=== PATIENT | female | born 1950 | race Caucasian/White ===

== ENCOUNTER 2016-04-22 18:34 | Inpatient (IN) | payer MEDICARE, OTHER ==
[2016-04-22] MEDS ORDERED: ACETAMINOPHEN TAB 500 MG TAB PO STA (18:49)
--- NOTE | 2016-04-22 18:51 | ED ---
General Adult HPI <Stan Dotson - Last Filed: 04/22/16 21:20> - General Source: patient, RN notes reviewed Mode of arrival: ambulatory Limitations: no limitations <Rani Bradley - Last Filed: 04/22/16 21:33> - General Chief complaint: Nausea/Vomiting/Diarrhea Stated complaint: abnormal labs Time Seen by Provider: 04/22/16 18:44 - History of Present Illness Initial comments: 65-year-old female presents to the emergency department with a chief complaint of weakness. Patient has a past medical history of multiple myeloma. Patient states she has a history of low platelets as well. Patient is a stress is felt very weak and tired. Patient states she did have one episode of vomiting but denies any abdominal pain. Patient states she does not know she had a fever but she does present with a fever here. Patient states that she hasn't had a cough cold right now she denies any burning or stinging with urination. Patient states that she just feels generalized weakness. Patient does not know if it's because her platelets are low she has needed platelet transfusions whether something else going on. Patient states she was concerned due to the weakness so she thought that she should be evaluated.Patient denies any recent chills, shortness of breath, chest pain, back pain, abdominal pain, nausea vomiting, numbness or tingling, dysuria or hematuria, constipation or diarrhea, headaches or visual changes, or any other current symptoms. (Rani Bradley) - Related Data Home Medications Medication Instructions Recorded Confirmed Acyclovir 400 mg PO BID 04/22/16 04/22/16 Ferrous Sulfate [Feosol] 325 mg PO DAILY 04/22/16 04/22/16 Furosemide [Lasix] 40 mg PO DAILY 04/22/16 04/22/16 Gabapentin [Neurontin] 400 mg PO TID 04/22/16 04/22/16 Levothyroxine Sodium [Synthroid] 50 mcg PO DAILY 04/22/16 04/22/16 Morphine Sulfate ER [Ms Contin 15 mg PO Q12HR PRN 04/22/16 04/22/16 15Mg] Pravastatin Sodium [Pravachol] 80 mg PO DAILY 04/22/16 04/22/16 metFORMIN HCL 1,000 mg PO BID 04/22/16 04/22/16 Allergies Allergy/AdvReac Type Severity Reaction Status Date / Time hydrocodone [From [place]] AdvReac Severe Nausea & Verified 04/22/16 18:57 Vomiting Review of Systems ROS Other: All systems not noted in ROS Statement are negative. <Stan Dotson - Last Filed: 04/22/16 21:20> ROS Other: All systems not noted in ROS Statement are negative. <Rani Bradley - Last Filed: 04/22/16 21:33> ROS Statement: Those systems with pertinent positive or pertinent negative responses have been documented in the HPI. Past Medical History Past Medical History: Coronary Artery Disease (CAD), Cancer, Heart Failure, Diabetes Mellitus, Hyperlipidemia Additional Past Medical History / Comment(s): multiple myeloma History of Any Multi-Drug Resistant Organisms: None Reported Past Surgical History: Heart Catheterization With Stent, Orthopedic Surgery Past Psychological History: No Psychological Hx Reported Smoking Status: Former smoker Past Alcohol Use History: None Reported Past Drug Use History: None Reported <Rani Bradley - Last Filed: 04/22/16 21:33> General Exam <Stan Dotson - Last Filed: 04/22/16 21:20> Limitations: no limitations <Rani Bradley - Last Filed: 04/22/16 21:33> - General Exam Comments Initial Comments: General: The patient is awake and alert, in no distress, and does not appear acutely ill. Eye: Pupils are equal, round and reactive to light, extra-ocular movements are intact; there is normal conjunctiva bilaterally. No signs of icterus. Ears, nose, mouth and throat: There are moist mucous membranes and no oral lesions. Neck: The neck is supple, there is no tenderness. Cardiovascular: There is a regular rate and rhythm. No murmur, rub or gallop is appreciated. Respiratory: Lungs are clear to auscultation, respirations are non-labored, breath sounds are equal. No wheezes, stridor, rales, or rhonchi. Gastrointestinal: Soft, non-distended, non-tender abdomen without masses or organomegaly noted. There is no rebound or guarding present. No CVA tenderness. Bowel sounds are unremarkable. Back: There is no tenderness to palpation in the midline. There is no obvious deformity. No rashes noted. Musculoskeletal: Normal ROM, no tenderness, There is no pedal edema. There is no calf tenderness or swelling. Sensation intact. Pulses equal bilaterally 2+. Neurological: CN II-XII intact, There are no obvious motor or sensory deficits. Coordination appears grossly intact. Speech is normal. Skin: Skin is warm and dry and no rashes or lesions are noted. Psychiatric: Cooperative, appropriate mood & affect, normal judgment. (Rani Bradley) Medical Decision Making - Lab Data Result diagrams: 04/22/16 19:54 04/22/16 19:54 <Stan Dotson - Last Filed: 04/22/16 21:20> - Lab Data Result diagrams: 04/22/16 19:54 04/22/16 19:54 - Radiology Data Radiology results: report reviewed, image reviewed <Rani Bradley - Last Filed: 04/22/16 21:33> - Medical Decision Making Medical decision-making. The patient pain [facility] emergency room weak and tired with fever 100.5. Labs show white count 2.1 hemoglobin 7.9 hematocrit 22.9. Platelets 20,000. She reports she is chronically low platelet osman. Patient's BUNs 18 creatinine 1.2 with a GFR 45. Plasma lactic acid is elevated at 3.5. Urine shows clumps of wbc's with with 40 whites and 5 reds. Case discussed with Dr. Reynolds patient will be admitted to telemetry, she has been started on vancomycin and Rocephin, diagnosis of urosepsis. Vital signs and found blood pressure be 139/60 on arrival, remained in that range while here. I interviewed the patient and examined her. Lungs are essentially clear at this time. Patient reports that her hemoglobin of 7.9 and platelets of 20 are asked to good for her. He does have some bruising on her and her thighs. We discussed her urosepsis and the patient will be admitted the hospital. Critical care time [address] Dotson (Stan Dotson) 65-year-old female presents to the emergency Department chief complaint of weakness. Patient does have a low-grade fever at this time. Patient's laboratory is reviewed patient's CBC is stable compared to patient's normal per the patient's history. Patient does appear to have a UTI with an elevated lactic with low-grade fever and she has sepsis criteria. Patient was treated with appropriate antibiotics. We did discuss that we will admit the patient for sepsis UTI. The patient is negative with the plan. She will be admitted to Rani Yang) - Lab Data Lab Results 04/22/16 04/22/16 04/22/16 Range/Units 19:54 19:54 19:54 WBC (3.8-10.6) k/uL RBC (3.80-5.40) m/uL Hgb (11.4-16.0) gm/dL Hct (34.0-46.0) % MCV (80.0-100.0) fL MCH (25.0-35.0) pg MCHC (31.0-37.0) g/dL RDW (11.5-15.5) % Plt Count (150-450) k/uL Neutrophils % % Lymphocytes % % Monocytes % % Eosinophils % % Basophils % % Neutrophils # (1.3-7.7) k/uL Lymphocytes # (1.0-4.8) k/uL Monocytes # (0-1.0) k/uL Eosinophils # (0-0.7) k/uL Basophils # (0-0.2) k/uL Poikilocytosis Anisocytosis Macrocytosis PT (9.0-12.0) sec INR (<1.1) APTT (22.0-30.0) sec Sodium (137-145) mmol/L Potassium (3.5-5.1) mmol/L Chloride (98-107) mmol/L Carbon Dioxide (22-30) mmol/L Anion Gap mmol/L BUN (7-17) mg/dL Creatinine (0.52-1.04) mg/dL Est GFR (MDRD) Af Amer (>60 ml/min/1.73 sqM) Est GFR (MDRD) Non-Af (>60 ml/min/1.73 sqM) Glucose (74-99) mg/dL Plasma Lactic Acid Hugo (0.7-2.0) mmol/L Calcium (8.4-10.2) mg/dL Total Bilirubin (0.2-1.3) mg/dL AST (14-36) U/L ALT (9-52) U/L Alkaline Phosphatase (38-126) U/L Total Creatine Kinase 28 L (30-135) U/L CK-MB (CK-2) 0.4 (0.0-2.4) ng/mL CK-MB (CK-2) Rel Index 1.4 Troponin I <0.012 (0.000-0.034) ng/mL Total Protein (6.3-8.2) g/dL Albumin (3.5-5.0) g/dL Cortisol ug/dL Urine Color Yellow Urine Appearance Cloudy H (Clear) Urine pH 5.5 (5.0-8.0) Ur Specific [place] 1.012 (1.001-1.035) Urine Protein 2+ H (Negative) Urine Glucose (UA) Negative (Negative) Urine Ketones Negative (Negative) Urine Blood Small H (Negative) Urine Nitrate Negative (Negative) Urine Bilirubin Negative (Negative) Urine Urobilinogen <2.0 (<2.0) mg/dL Ur Leukocyte Esterase Negative (Negative) Urine RBC 5 (0-5) /hpf Urine WBC 40 H (0-5) /hpf Urine WBC Clumps Few H (None) /hpf Ur Squamous Epith Cells 2 (0-4) /hpf Amorphous Sediment Few H (None) /hpf Hyaline Casts 12 H (0-2) /lpf Granular Casts 321 (0) /lpf Urine Mucus Rare H (None) /hpf Influenza Type A RNA Not Detected (Not Detectd) Influenza Type B (PCR) Not Detected (Not Detectd) 04/22/16 04/22/16 04/22/16 Range/Units 19:54 19:54 19:54 WBC 2.1 L (3.8-10.6) k/uL RBC 2.23 L (3.80-5.40) m/uL Hgb 7.9 L (11.4-16.0) gm/dL Hct 22.9 L (34.0-46.0) % MCV 102.8 H (80.0-100.0) fL MCH 35.7 H (25.0-35.0) pg MCHC 34.7 (31.0-37.0) g/dL RDW 20.7 H (11.5-15.5) % Plt Count 20 L* (150-450) k/uL Neutrophils % 79 % Lymphocytes % 9 % Monocytes % 8 % Eosinophils % 1 % Basophils % 0 % Neutrophils # 1.7 (1.3-7.7) k/uL Lymphocytes # 0.2 L (1.0-4.8) k/uL Monocytes # 0.2 (0-1.0) k/uL Eosinophils # 0.0 (0-0.7) k/uL Basophils # 0.0 (0-0.2) k/uL Poikilocytosis Slight Anisocytosis Moderate Macrocytosis Moderate PT (9.0-12.0) sec INR (<1.1) APTT (22.0-30.0) sec Sodium 142 (137-145) mmol/L Potassium 3.7 (3.5-5.1) mmol/L Chloride 103 (98-107) mmol/L Carbon Dioxide 23 (22-30) mmol/L Anion Gap 16 mmol/L BUN 18 H (7-17) mg/dL Creatinine 1.20 H (0.52-1.04) mg/dL Est GFR (MDRD) Af Amer 55 (>60 ml/min/1.73 sqM) Est GFR (MDRD) Non-Af 45 (>60 ml/min/1.73 sqM) Glucose 138 H (74-99) mg/dL Plasma Lactic Acid Hugo 3.5 H* (0.7-2.0) mmol/L Calcium 9.7 (8.4-10.2) mg/dL Total Bilirubin 0.9 (0.2-1.3) mg/dL AST 28 (14-36) U/L ALT 37 (9-52) U/L Alkaline Phosphatase 66 (38-126) U/L Total Creatine Kinase (30-135) U/L CK-MB (CK-2) (0.0-2.4) ng/mL CK-MB (CK-2) Rel Index Troponin I (0.000-0.034) ng/mL Total Protein 7.1 (6.3-8.2) g/dL Albumin 4.7 (3.5-5.0) g/dL Cortisol 20 ug/dL Urine Color Urine Appearance (Clear) Urine pH (5.0-8.0) Ur Specific [place] (1.001-1.035) Urine Protein (Negative) Urine Glucose (UA) (Negative) Urine Ketones (Negative) Urine Blood (Negative) Urine Nitrate (Negative) Urine Bilirubin (Negative) Urine Urobilinogen (<2.0) mg/dL Ur Leukocyte Esterase (Negative) Urine RBC (0-5) /hpf Urine WBC (0-5) /hpf Urine WBC Clumps (None) /hpf Ur Squamous Epith Cells (0-4) /hpf Amorphous Sediment (None) /hpf Hyaline Casts (0-2) /lpf Granular Casts (0) /lpf Urine Mucus (None) /hpf Influenza Type A RNA (Not Detectd) Influenza Type B (PCR) (Not Detectd) 04/22/16 Range/Units 19:54 WBC (3.8-10.6) k/uL RBC (3.80-5.40) m/uL Hgb (11.4-16.0) gm/dL Hct (34.0-46.0) % MCV (80.0-100.0) fL MCH (25.0-35.0) pg MCHC (31.0-37.0) g/dL RDW (11.5-15.5) % Plt Count (150-450) k/uL Neutrophils % % Lymphocytes % % Monocytes % % Eosinophils % % Basophils % % Neutrophils # (1.3-7.7) k/uL Lymphocytes # (1.0-4.8) k/uL Monocytes # (0-1.0) k/uL Eosinophils # (0-0.7) k/uL Basophils # (0-0.2) k/uL Poikilocytosis Anisocytosis Macrocytosis PT 11.3 (9.0-12.0) sec INR 1.1 (<1.1) APTT 22.0 (22.0-30.0) sec Sodium (137-145) mmol/L Potassium (3.5-5.1) mmol/L Chloride (98-107) mmol/L Carbon Dioxide (22-30) mmol/L Anion Gap mmol/L BUN (7-17) mg/dL Creatinine (0.52-1.04) mg/dL Est GFR (MDRD) Af Amer (>60 ml/min/1.73 sqM) Est GFR (MDRD) Non-Af (>60 ml/min/1.73 sqM) Glucose (74-99) mg/dL Plasma Lactic Acid Hugo (0.7-2.0) mmol/L Calcium (8.4-10.2) mg/dL Total Bilirubin (0.2-1.3) mg/dL AST (14-36) U/L ALT (9-52) U/L Alkaline Phosphatase (38-126) U/L Total Creatine Kinase (30-135) U/L CK-MB (CK-2) (0.0-2.4) ng/mL CK-MB (CK-2) Rel Index Troponin I (0.000-0.034) ng/mL Total Protein (6.3-8.2) g/dL Albumin (3.5-5.0) g/dL Cortisol ug/dL Urine Color Urine Appearance (Clear) Urine pH (5.0-8.0) Ur Specific [place] (1.001-1.035) Urine Protein (Negative) Urine Glucose (UA) (Negative) Urine Ketones (Negative) Urine Blood (Negative) Urine Nitrate (Negative) Urine Bilirubin (Negative) Urine Urobilinogen (<2.0) mg/dL Ur Leukocyte Esterase (Negative) Urine RBC (0-5) /hpf Urine WBC (0-5) /hpf Urine WBC Clumps (None) /hpf Ur Squamous Epith Cells (0-4) /hpf Amorphous Sediment (None) /hpf Hyaline Casts (0-2) /lpf Granular Casts (0) /lpf Urine Mucus (None) /hpf Influenza Type A RNA (Not Detectd) Influenza Type B (PCR) (Not Detectd) Critical Care Time Critical Care Time: Yes (30 minutes) Total Critical Care Time: 30 ([place]man[place] reexamination. Interpretation of labs were sensation with patient, examination and discussing case with attending.) <Stan Dotson - Last Filed: 04/22/16 21:20> Disposition <Stan Dotson - Last Filed: 04/22/16 21:20> Time of Disposition: 21:33 Decision Date: 04/22/16 Decision Time: 21:33 <Rani Bradley - Last Filed: 04/22/16 21:33> Clinical Impression: UTI (urinary tract infection), Sepsis, Thrombocytopenia, Multiple myeloma Disposition: ADMITTED IP TO THIS [facility] Condition: Stable
[2016-04-22] MEDS: SODIUM CHLORIDE 0.9% 500 ML IV SCH ×3 (19:57→21:00)
[2016-04-22 20:02] LABS: Anisocytosis Moderate; Basophils % (A) 0 %; CHCM 35.3; Eosinophils % (A) 1 %; HCT 22.9 % (34.0-46.0); HDW 3.78; HGB 7.9 gm/dL (11.4-16.0); Luc # (Auto) 0.06; Luc % (Auto) 3; Lymphocytes # (A) 0.2 k/uL (1.0-4.8); Lymphocytes % (A) 9 %; MCH 35.7 pg (25.0-35.0); MCHC 34.7 g/dL (31.0-37.0); MCV 102.8 fL (80.0-100.0); Macrocytosis Moderate; Mean Platelet Volume 9.9; Monocytes # (A) 0.2 k/uL (0-1.0); Monocytes % (A) 8 %; Neutrophils # (A) 1.7 k/uL (1.3-7.7); Neutrophils % (A) 79 %; Poikilocytosis Slight; RBC 2.23 m/uL (3.80-5.40); RDW 20.7 % (11.5-15.5); WBC 2.1 k/uL (3.8-10.6); WBC (Perox) 2.19
[2016-04-22 20:17] LABS: Calcium 9.7 mg/dL (8.4-10.2); Creatine Kinase 28 U/L (30-135); Potassium 3.7 mmol/L (3.5-5.1); Total Bilirubin 0.9 mg/dL (0.2-1.3); Total Protein 7.1 g/dL (6.3-8.2)
[2016-04-22 20:18] LABS: Amorphous Sediment,Urine Few /hpf; Appearance,Urine Cloudy (Clear); Bilirubin,Urine Negative (Negative); Glucose,Urine (UA) Negative (Negative); Granular Casts,Urine 321 /lpf (0); Ketones,Urine Negative (Negative); Leukocyte Esterase,Urine Negative (Negative); Mucus,Urine Rare /hpf; Nitrite,Urine Negative (Negative); PH, Urine 5.5 (5.0-8.0); Particle Count 9605; Protein,Urine 2+ (Negative); RBC,Urine 5 /hpf (0-5); Specific Gravity,Urine 1.012 (1.001-1.035); Squamous Epithelial Cell,Urine 2 /hpf (0-4); UA Billing (MACRO vs. MICRO) MICRO; Urobilinogen,Urine <2.0 mg/dL (<2.0); WBC,Urine 40 /hpf (0-5)
--- NOTE | 2016-04-22 20:23 | XR ---
EXAMINATION TYPE: XR chest 2V DATE OF EXAM: 04/22/2016 8:14 PM COMPARISON: NONE HISTORY: Fever and vomiting TECHNIQUE: Frontal and lateral views of the chest are obtained. FINDINGS: Heart size is normal. There is no heart failure. There is some coarsening of interstitial markings. There is old left clavicle fracture. There is intramedullary dunia in the right humerus. Ther e is a right central venous catheter with tip in the superior vena cava. There is no pleural effusion . There is 30% anterior wedging of a lower thoracic vertebra. There is mild thoracolumbar kyphotic cu rvature. There are nodular densities in the left lung measure up to 1 cm that are relatively dense an d could relate to granulomatous disease. IMPRESSION: Pulmonary fibrotic changes. No heart failure. No evidence of bronchopneumonia.
[2016-04-22 20:26] LABS: INR 1.1 (<1.1); Prothrombin Time 11.3 sec (9.0-12.0)
[2016-04-22] MEDS ORDERED: SODIUM CHLORIDE 0.9% 600 ML IV STA (20:29)
[2016-04-22 20:30] LABS: Creatine Kinase MB 0.4 ng/mL (0.0-2.4); Troponin I <0.012 ng/mL (0.000-0.034)
[2016-04-22] MEDS ORDERED: IV VANCOMYCIN PER PHARMACY 1 EACH MISC MISCELLANE PRN (21:03)
[2016-04-22] MEDS ORDERED: VANCOMYCIN 1,500 MG in SODIUM CHLORIDE 0.9% 250 ML IVPB STA (21:09)
[2016-04-22] MEDS ORDERED: MORPHINE SULFATE ER 15 MG TABLET PO PRN (21:24)
[2016-04-22] MEDS: SODIUM CHLORIDE 0.9% 1,000 ML IV STA (21:30)
[2016-04-23 03:01] LABS: Creatine Kinase 24 U/L (30-135)
[2016-04-23] MEDS: SODIUM CHLORIDE 0.45% 1,000 ML IV SCH ×2 (03:01→10:06)
[2016-04-23] MEDS: GABAPENTIN 400 MG CAP PO SCH ×3 (03:01→21:03)
[2016-04-23 03:14] LABS: Creatine Kinase MB 0.4 ng/mL (0.0-2.4); Troponin I <0.012 ng/mL (0.000-0.034)
[2016-04-23] MEDS ORDERED: metFORMIN 500 MG TAB PO SCH (07:30)
[2016-04-23 07:56] LABS: Creatine Kinase 24 U/L (30-135)
[2016-04-23 08:09] LABS: Creatine Kinase MB 0.4 ng/mL (0.0-2.4); Troponin I <0.012 ng/mL (0.000-0.034)
[2016-04-23] MEDS: FERROUS SULFATE 325 MG TAB PO SCH (09:15)
[2016-04-23] MEDS: LEVOTHYROXINE 50 MCG TAB PO SCH (09:15)
[2016-04-23] MEDS: PRAVASTATIN SODIUM 80 MG TAB PO SCH ×2 (09:15→09:16)
[2016-04-23] MEDS: FUROSEMIDE 40 MG TAB PO SCH (09:15)
[2016-04-23] MEDS: ACYCLOVIR 200 MG CAP PO SCH ×2 (09:16→21:03)
[2016-04-23] MEDS: SODIUM CHLORIDE 0.9% 1,000 ML IV STA (11:09)
--- NOTE | 2016-04-23 11:18 | P.HPIM ---
History of Present Illness H&P Date: 04/23/16 Chief Complaint: Generalized weakness and not feeling well This is a 65-year-old female with a known history of multiple myeloma, coronary artery disease, congestive heart failure, diabetes mellitus type 2 and hypothyroidism. She is a known patient of Dr. Laura. Patient seen and examined in the emergency room. She presents to the emergency room with complaints of generalized weakness and not feeling well. She thought that her platelet count may be low again. Due to her multiple myeloma and chemotherapy patient has been receiving blood transfusions and platelet transfusions regularly. She sees a Dr. Rosalba Brooks. Last chemotherapy was March 28 and after reevaluation by her oncologist they're not proceeding with any more chemotherapy she was not responding to it. Patient was found to have a urinary tract infection on admission started on Rocephin and vancomycin. She did have a temp of 100 and heart rate of 108 with a white count of 2.1, hemoglobin 7.9 platelets her 20 lactic acid elevated at 3.5. Patient did have evidence of sepsis has been given IV fluids. Flu screen was negative. Patient denies any chills or sweats. Denies any nausea or vomiting. Denies any bowel movement changes. Denies any burning with urination or any frequency or urgency. Denies any cough or chest pain or shortness of breath. Patient is been admitted to the hospital UTI with sepsis. Review of Systems Please refer to HPI otherwise unremarkable Past Medical History Past Medical History: Coronary Artery Disease (CAD), Cancer, Heart Failure, Diabetes Mellitus, Hyperlipidemia Additional Past Medical History / Comment(s): 2005 diagnosed with multiple myeloma-tx at [facility]-chemo several times-oral chemo stopped 04/12/16, low platelets, chronic anemia, NIDDM type II, hypothyroidism, chronic back pain, L/ R clavical fractures in past. History of Any Multi-Drug Resistant Organisms: None Reported Past Surgical History: Heart Catheterization With Stent, Orthopedic Surgery Additional Past Surgical History / Comment(s): R shoulder pinned, cardiac caths with 6 cardiac stents, colonoscopy, bilateral cataract removals Past Anesthesia/Blood Transfusion Reactions: No Reported Reaction Additional Past Anesthesia/Blood Transfusion Reaction / Comment(s): Numerous blood transfusions/platelets Date of Last Stent Placement:: 2005 Past Psychological History: No Psychological Hx Reported Additional Psychological History / Comment(s): Pt resides alone. She uses a walker infrequently. She can drive but does not currently own a car. She has a sister who drives her to [employer] of she gets rides thru her medicaid. Smoking Status: Former smoker Past Alcohol Use History: None Reported Additional Past Alcohol Use History / Comment(s): Pt states she started smoking in 1968 and quit in 2004 Past Drug Use History: None Reported - Past Family History Father Family Medical History: Hypertension Additional Family Medical History / Comment(s): Father had depression and comitted suicide. Mother Family Medical History: Cancer, Thyroid Disorder Additional Family Medical History / Comment(s): Mother had breast and cervical cancers. Medications and Allergies Home Medications Medication Instructions Recorded Confirmed Type Acyclovir 400 mg PO BID 04/22/16 04/22/16 History Ferrous Sulfate [Feosol] 325 mg PO DAILY 04/22/16 04/22/16 History Furosemide [Lasix] 40 mg PO DAILY 04/22/16 04/22/16 History Gabapentin [Neurontin] 400 mg PO TID 04/22/16 04/22/16 History Levothyroxine Sodium [Synthroid] 50 mcg PO DAILY 04/22/16 04/22/16 History Morphine Sulfate ER [Ms Contin 15 mg PO Q12HR PRN 04/22/16 04/22/16 History 15Mg] Pravastatin Sodium [Pravachol] 80 mg PO DAILY 04/22/16 04/22/16 History metFORMIN HCL 1,000 mg PO BID 04/22/16 04/22/16 History Allergies Allergy/AdvReac Type Severity Reaction Status Date / Time hydrocodone [From [place]] AdvReac Severe Nausea & Verified 04/22/16 18:57 Vomiting Physical Exam Vitals: Vital Signs Temp Pulse Resp BP Pulse Ox 04/23/16 10:20 102 H 18 116/56 96 04/23/16 09:21 96.6 F L 72 18 107/63 98 04/23/16 05:00 82 20 118/72 98 04/23/16 03:05 97.5 F L 78 18 113/62 98 04/23/16 01:22 85 18 113/62 97 04/22/16 23:19 99.0 F 86 20 101/62 99 04/22/16 22:30 89 20 135/68 99 Head normocephalic Neck supple Lungs clear to auscultation bilaterally no wheezing or crackles Heart regular rate and rhythm S1-S2, no rub or gallop Abdomen is soft nontender nondistended positive bowel sounds no hepatosplenomegaly Extremities no edema Neuro alert and orientated to 3 Results CBC & Chem 7: 04/22/16 19:54 04/22/16 19:54 Labs: Abnormal Lab Results - Last 24 Hours (Table) 04/22/16 04/23/16 04/23/16 Range/Units 23:10 02:16 07:30 Plasma Lactic Acid Hugo 2.3 H* (0.7-2.0) mmol/L Total Creatine Kinase 24 L 24 L (30-135) U/L Thrombosis Risk Factor Assmnt - Choose All That Apply Any of the Below Risk Factors Present?: Yes Each Factor Represents 1 point: Obesity (BMI >25), Sepsis (< 1month) Other Risk Factors: Yes Each Risk Factor Represents 2 Points: Age 61-74 years, Malignancy Other congenital or acquired thrombophilia - If yes, enter type in comment: No Thrombosis Risk Factor Assessment Total Risk Factor Score: 6 Thrombosis Risk Factor Assessment Level: High Risk Assessment and Plan Plan: 1. UTI with sepsis: Urine culture pending. Patient is currently on IV Rocephin and vancomycin started in the emergency room. She had elevated lactic acid level of 3.5. Patient was tachycardic and had a low-grade temp of 100 White count 2.1 on admission 2. History of multiple myeloma followed by Todd Munoz. Last chemo treatment was March 28. Patient is no longer receiving chemotherapy treatment because she was not responding to it. Dr. Pena will be consulted 3. Pancytopenia and chronic anemia due to her multiple myeloma: Oncology will be consulted. Repeat CBC. Patient has known history of receiving multiple transfusions for her blood count and platelets 4. Diabetes mellitus type 2: Hold metformin. Place patient on sliding scale coverage 5. Acute kidney injury: We will change IV fluids normal saline at 100 mL an hour. Hold Lasix. Repeat labs today and tomorrow 6. Hypothyroidism resume her Synthroid 7. Hyperlipidemia resume her pravastatin GI prophylaxis Pepcid and DVT prophylaxis SCD Time with Patient: Greater than 30 (Greater than 50% of the total time spent in counseling and coordination of care.I performed an examination of the patient and discussed their management with the physician Welding Machine Operator Helper Arc. I have reviewed the Physician Welding Machine Operator Helper Arc's notes and agree with the documented findings and plan of care)
[2016-04-23 12:00] LABS: ALT 34 U/L (9-52); AST 20 U/L (14-36); Alkaline Phosphatase 45 U/L (38-126); Anion Gap 13 mmol/L; Blood Urea Nitrogen 16 mg/dL (7-17); Calcium 7.9 mg/dL (8.4-10.2); Carbon Dioxide 20 mmol/L (22-30); Chloride 110 mmol/L (98-107); Glucose 158 mg/dL (74-99); Non-African American GFR(MDRD) 50 (>60 ml/min/1.73 sqM); Potassium 3.3 mmol/L (3.5-5.1); Sodium 143 mmol/L (137-145); Total Bilirubin 0.3 mg/dL (0.2-1.3); Total Protein 5.3 g/dL (6.3-8.2)
[2016-04-23 12:25] LABS: Anisocytosis Moderate; Aty Lym Flag Slight; CH 34.9; CHCM 31.4; HDW 3.42; Hypochromasia Moderate; MCH 35.5 pg (25.0-35.0); MCHC 31.6 g/dL (31.0-37.0); Macrocytosis Marked; Mean Platelet Volume 10.5; Poikilocytosis Slight; RBC 1.69 m/uL (3.80-5.40); RDW 20.8 % (11.5-15.5); WBC (Perox) 1.11
[2016-04-23] MEDS ORDERED: VANCOMYCIN 1,500 MG in SODIUM CHLORIDE 0.9% 250 ML IVPB SCH (14:00)
[2016-04-23 14:25] LABS: Add Differential Manual Differential
[2016-04-23 14:40] LABS: Hemoglobin A1C 5.3 % (4.2-6.1)
[2016-04-23] MEDS: FAMOTIDINE 20 MG TAB PO SCH (15:11)
[2016-04-23] MEDS: SODIUM CHLORIDE 0.9% 1,000 ML IV SCH ×2 (15:11→22:19)
[2016-04-23 15:30] LABS: MCV 112.3 fL (80.0-100.0)
[2016-04-23 15:43] LABS: Glucose,Whole Blood 123 mg/dL (75-99)
[2016-04-23 16:52] LABS: Glucose,Whole Blood 127 mg/dL (75-99)
[2016-04-23] MEDS: INSULIN LISPRO (humaLOG) 300 UNIT/3 ML VIAL SQ SCH ×2 (16:52→21:14)
[2016-04-23 21:08] LABS: Glucose,Whole Blood 145 mg/dL (75-99)
[2016-04-24 06:37] LABS: Anisocytosis Moderate; CHCM 34.1; MCH 36.6 pg (25.0-35.0); MCHC 34.4 g/dL (31.0-37.0); Macrocytosis Marked; Mean Platelet Volume 9.1; Poikilocytosis Slight; RBC 1.77 m/uL (3.80-5.40); RDW 20.5 % (11.5-15.5); WBC (Perox) 0.75
[2016-04-24 06:45] LABS: HCT 18.8 % (34.0-46.0); HGB 6.5 gm/dL (11.4-16.0); WBC 0.7 k/uL (3.8-10.6)
[2016-04-24 06:50] LABS: Calcium 7.9 mg/dL (8.4-10.2); Total Bilirubin 0.6 mg/dL (0.2-1.3); Total Protein 5.7 g/dL (6.3-8.2)
[2016-04-24 06:55] LABS: MCV 106.4 fL (80.0-100.0); Potassium 2.9 mmol/L (3.5-5.1)
[2016-04-24] MEDS ORDERED: Potassium Replacement Protocol 1 EACH MISC MISCELLANE PRN (07:24)
[2016-04-24] MEDS: INSULIN LISPRO (humaLOG) 300 UNIT/3 ML VIAL SQ SCH ×4 (07:44→21:10)
[2016-04-24] MEDS: SODIUM CHLORIDE 0.9% 1,000 ML IV SCH ×3 (08:05→23:50)
[2016-04-24] MEDS: POTASSIUM CHLORIDE ER 20 MEQ TAB.ER PO SCH ×3 (08:07→09:53)
[2016-04-24] MEDS: ACYCLOVIR 200 MG CAP PO SCH ×2 (08:07→21:10)
[2016-04-24] MEDS: GABAPENTIN 400 MG CAP PO SCH ×3 (08:07→22:36)
[2016-04-24] MEDS: FAMOTIDINE 20 MG TAB PO SCH (08:07)
[2016-04-24 09:11] LABS: Add Differential Manual Differential; Manual Review Performed
[2016-04-24 09:12] LABS: Tear Drop Cells Present
[2016-04-24 11:13] LABS: Glucose,Whole Blood 113 mg/dL (75-99)
--- NOTE | 2016-04-24 11:36 | P.PN ---
Subjective Patient is doing fairly well today. No events overnight. Objective - Vital Signs Vital signs: Vital Signs Temp 97.4 F L 04/24/16 07:00 Pulse 70 04/24/16 07:00 Resp 18 04/24/16 07:00 BP 143/69 04/24/16 07:00 Pulse Ox 97 04/24/16 08:08 Intake & Output 04/23/16 04/24/16 04/24/16 18:59 06:59 18:59 Intake Total 1600 Balance 1600 Intake: IV 1600 Sodium Chloride 0.9% 1, 1600 000 ml @ 100 mls/hr IV . Q10H [facility] Rx#:[id number] Other: Voiding Method Toilet # Voids 6 - Exam General: The patient is awake and alert, in no distress Eye: there is normal conjunctiva bilaterally. Neck: The neck is supple, there is no JVD. Cardiovascular: Normal S1-S2, no S3-S4, no murmurs. Respiratory: Lungs clear to auscultation bilaterally Gastrointestinal: Abdomen is soft, nontender Musculoskeletal: There is no pedal edema. Neurological:. Speech is normal. Skin: Skin is warm and dry - Labs CBC & Chem 7: 04/24/16 06:20 04/24/16 06:20 Labs: Abnormal Lab Results - Last 24 Hours (Table) 04/23/16 04/23/16 04/23/16 Range/Units 07:30 07:30 14:48 WBC 1.0 L* (3.8-10.6) k/uL RBC 1.69 L (3.80-5.40) m/uL Hgb 6.0 L* D (11.4-16.0) gm/dL Hct 19.0 L* (34.0-46.0) % MCV 112.3 H D (80.0-100.0) fL MCH 35.5 H (25.0-35.0) pg RDW 20.8 H (11.5-15.5) % Plt Count 13 L* (150-450) k/uL Potassium 3.3 L (3.5-5.1) mmol/L Chloride 110 H (98-107) mmol/L Carbon Dioxide 20 L (22-30) mmol/L Creatinine 1.10 H (0.52-1.04) mg/dL Glucose 158 H (74-99) mg/dL POC Glucose (mg/dL) (75-99) mg/dL Plasma Lactic Acid Hugo (0.7-2.0) mmol/L Calcium 7.9 L (8.4-10.2) mg/dL Total Protein 5.3 L (6.3-8.2) g/dL Albumin 3.3 L (3.5-5.0) g/dL Crossmatch See Detail 04/23/16 04/23/16 04/23/16 Range/Units 15:41 16:50 17:08 WBC (3.8-10.6) k/uL RBC (3.80-5.40) m/uL Hgb (11.4-16.0) gm/dL Hct (34.0-46.0) % MCV (80.0-100.0) fL MCH (25.0-35.0) pg RDW (11.5-15.5) % Plt Count (150-450) k/uL Potassium (3.5-5.1) mmol/L Chloride (98-107) mmol/L Carbon Dioxide (22-30) mmol/L Creatinine (0.52-1.04) mg/dL Glucose (74-99) mg/dL POC Glucose (mg/dL) 123 H 127 H (75-99) mg/dL Plasma Lactic Acid Hugo (0.7-2.0) mmol/L Calcium (8.4-10.2) mg/dL Total Protein (6.3-8.2) g/dL Albumin (3.5-5.0) g/dL Crossmatch See Detail 04/23/16 04/24/16 04/24/16 Range/Units 21:06 06:20 06:20 WBC 0.7 L* (3.8-10.6) k/uL RBC 1.77 L (3.80-5.40) m/uL Hgb 6.5 L* (11.4-16.0) gm/dL Hct 18.8 L* (34.0-46.0) % MCV 106.4 H D (80.0-100.0) fL MCH 36.6 H (25.0-35.0) pg RDW 20.5 H (11.5-15.5) % Plt Count 18 L* (150-450) k/uL Potassium 2.9 L* (3.5-5.1) mmol/L Chloride 109 H (98-107) mmol/L Carbon Dioxide (22-30) mmol/L Creatinine 1.21 H (0.52-1.04) mg/dL Glucose 108 H (74-99) mg/dL POC Glucose (mg/dL) 145 H (75-99) mg/dL Plasma Lactic Acid Hugo (0.7-2.0) mmol/L Calcium 7.9 L (8.4-10.2) mg/dL Total Protein 5.7 L (6.3-8.2) g/dL Albumin (3.5-5.0) g/dL Crossmatch 04/24/16 04/24/16 Range/Units 06:20 11:10 WBC (3.8-10.6) k/uL RBC (3.80-5.40) m/uL Hgb (11.4-16.0) gm/dL Hct (34.0-46.0) % MCV (80.0-100.0) fL MCH (25.0-35.0) pg RDW (11.5-15.5) % Plt Count (150-450) k/uL Potassium (3.5-5.1) mmol/L Chloride (98-107) mmol/L Carbon Dioxide (22-30) mmol/L Creatinine (0.52-1.04) mg/dL Glucose (74-99) mg/dL POC Glucose (mg/dL) 113 H (75-99) mg/dL Plasma Lactic Acid Hugo 0.6 L (0.7-2.0) mmol/L Calcium (8.4-10.2) mg/dL Total Protein (6.3-8.2) g/dL Albumin (3.5-5.0) g/dL Crossmatch Assessment and Plan Plan: 1. UTI with sepsis: Urine culture negative. Patient is currently on IV Rocephin and vancomycin. We will continue broad-spectrum antibiotic for 1 more day and possibly the escalator treatment tomorrow morning as patient is doing well clinically 2. History of multiple myeloma followed by Todd Munoz. Last chemo treatment was March 28. Patient is no longer receiving chemotherapy at this time. Seen and evaluated by oncology, appreciate recommendations. 3. Pancytopenia and chronic anemia: Awaiting blood transfusion unit from blood bank. Hematology following 4. Diabetes mellitus type 2: Hold metformin. Place patient on sliding scale coverage 5. Acute kidney injury: On IV fluid hydration. We will repeat lab work in the morning 6. Hypothyroidism resume her Synthroid 7. Hyperlipidemia resume her pravastatin GI prophylaxis Pepcid and DVT prophylaxis SCD Plan for today: Decrease IV fluid to 50 mL per hour. Awaiting PRBC transfusion from blood bank. Continue supportive care. Monitor clinical status.
[2016-04-24] MEDS: FILGRASTIM-SNDZ 480 MCG/0.8 ML SYRINGE SQ SCH (16:41)
--- NOTE | 2016-04-24 17:16 | P.CONS ---
History of Present Illness - Reason for Consult Consult date: 04/24/16 Multiple meyloma Requesting physician: Fabi Lockhart - Chief Complaint weak, bruising - History of Present Illness Pt is a very pleasant 65 year old female diagnosed with multiple myeloma in 2005. She has been treated with multiple lines of therapy, most recently alkeran and dexamethasone. She was seen by her Oncologist Dr. Wiseman about 2 weeks ago and he held treatment due to hematological toxicities, she received her monthly zometa then. Pt has also had multiple pathological fractures, some treated surgically and some with radiation. Currently her malignancy related bone pain is controlled on 15 MSIR. She came to the hospital due to easy bruising and feeling "sick", progressive fatigue, she knows that her counts have been down and she has been transfusion dependent for several months, she has multiple antibodies. She denies fever, recent or recurrent infections, nausea, cough, abd pain, dysuria, diarrhea or constipation or swelling. Review of Systems All systems: negative Constitutional: Reports as per HPI Past Medical History Past Medical History: Coronary Artery Disease (CAD), Cancer, Heart Failure, Diabetes Mellitus, Hyperlipidemia Additional Past Medical History / Comment(s): 2005 diagnosed with multiple myeloma-tx at [facility]-chemo several times-oral chemo stopped 04/12/16, low platelets, chronic anemia, NIDDM type II, hypothyroidism, chronic back pain, L/ R clavical fractures in past. History of Any Multi-Drug Resistant Organisms: None Reported Past Surgical History: Heart Catheterization With Stent, Orthopedic Surgery Additional Past Surgical History / Comment(s): R shoulder pinned, cardiac caths with 6 cardiac stents, colonoscopy, bilateral cataract removals Past Anesthesia/Blood Transfusion Reactions: No Reported Reaction Additional Past Anesthesia/Blood Transfusion Reaction / Comm: Numerous blood transfusions/platelets Date of Last Stent Placement:: 2005 Past Psychological History: No Psychological Hx Reported Additional Psychological History / Comment(s): Pt resides alone. She uses a walker infrequently. She can drive but does not currently own a car. She has a sister who drives her to appts of she gets rides thru her medicaid. Smoking Status: Former smoker Past Alcohol Use History: None Reported Additional Past Alcohol Use History / Comment(s): Pt states she started smoking in 1968 and quit in 2004 Past Drug Use History: None Reported - Past Family History Father Family Medical History: Hypertension Additional Family Medical History / Comment(s): Father had depression and comitted suicide. Mother Family Medical History: Cancer, Thyroid Disorder Additional Family Medical History / Comment(s): Mother had breast and cervical cancers. Medications and Allergies Home Medications Medication Instructions Recorded Confirmed Type Acyclovir 400 mg PO BID 04/22/16 04/22/16 History Ferrous Sulfate [Feosol] 325 mg PO DAILY 04/22/16 04/22/16 History Furosemide [Lasix] 40 mg PO DAILY 04/22/16 04/22/16 History Gabapentin [Neurontin] 400 mg PO TID 04/22/16 04/22/16 History Levothyroxine Sodium [Synthroid] 50 mcg PO DAILY 04/22/16 04/22/16 History Morphine Sulfate ER [Ms Contin 15 mg PO Q12HR PRN 04/22/16 04/22/16 History 15Mg] Pravastatin Sodium [Pravachol] 80 mg PO DAILY 04/22/16 04/22/16 History metFORMIN HCL 1,000 mg PO BID 04/22/16 04/22/16 History Allergies Allergy/AdvReac Type Severity Reaction Status Date / Time hydrocodone [From [place]] AdvReac Severe Nausea & Verified 04/22/16 18:57 Vomiting Physical Exam Vitals: Vital Signs Temp Pulse Pulse Resp BP BP Pulse Ox 04/24/16 08:08 97 04/24/16 07:00 97.4 F L 70 18 143/69 93 L 04/23/16 22:35 98.1 F 91 16 137/64 95 04/23/16 21:08 98.2 F 93 18 137/71 97 04/23/16 19:02 95 18 118/59 97 04/23/16 15:00 89 18 110/60 96 04/23/16 13:52 90 18 116/59 97 04/23/16 12:27 97.5 F L 109 H 18 131/62 95 04/23/16 10:20 102 H 18 116/56 96 Intake and Output 04/23/16 04/24/16 04/24/16 22:59 06:59 14:59 Intake Total 800 800 Balance 800 800 Intake: IV 800 800 Sodium Chloride 0.9% 1, 800 800 000 ml @ 100 mls/hr IV . Q10H [facility] Rx#:[id number] Other: Voiding Method Toilet # Voids 4 6 - Constitutional General appearance: average body habitus, cooperative, no acute distress - EENT Eyes: anicteric sclerae, PERRLA, normal appearance ENT: normal oropharynx - Neck Neck: no lymphadenopathy - Respiratory Respiratory: bilateral: CTA - Cardiovascular Rhythm: regular Heart sounds: normal: S1, S2 leg Peripheral Edema: bilateral: None - Gastrointestinal General gastrointestinal: no absent bowel sounds, no decreased bowel sounds, no distended, no hepatomegaly, no hyperactive bowel sounds, normal bowel sounds, no organomegaly, no rigid, no scaphoid, soft, no splenomegaly, no tenderness, no umbilical hernia, no ventral hernia - Neurologic Neurologic: CNII-XII intact - Musculoskeletal Musculoskeletal: strength equal bilaterally - Psychiatric Psychiatric: A&O x's 3, appropriate affect, intact judgment & insight Results CBC & Chem 7: 04/24/16 06:20 04/24/16 06:20 Labs: Abnormal Lab Results - Last 24 Hours (Table) 04/23/16 04/23/16 04/23/16 Range/Units 07:30 07:30 14:48 WBC 1.0 L* (3.8-10.6) k/uL RBC 1.69 L (3.80-5.40) m/uL Hgb 6.0 L* D (11.4-16.0) gm/dL Hct 19.0 L* (34.0-46.0) % MCV 112.3 H D (80.0-100.0) fL MCH 35.5 H (25.0-35.0) pg RDW 20.8 H (11.5-15.5) % Plt Count 13 L* (150-450) k/uL Potassium 3.3 L (3.5-5.1) mmol/L Chloride 110 H (98-107) mmol/L Carbon Dioxide 20 L (22-30) mmol/L Creatinine 1.10 H (0.52-1.04) mg/dL Glucose 158 H (74-99) mg/dL POC Glucose (mg/dL) (75-99) mg/dL Plasma Lactic Acid Hugo (0.7-2.0) mmol/L Calcium 7.9 L (8.4-10.2) mg/dL Total Protein 5.3 L (6.3-8.2) g/dL Albumin 3.3 L (3.5-5.0) g/dL Crossmatch See Detail 04/23/16 04/23/16 04/23/16 Range/Units 15:41 16:50 17:08 WBC (3.8-10.6) k/uL RBC (3.80-5.40) m/uL Hgb (11.4-16.0) gm/dL Hct (34.0-46.0) % MCV (80.0-100.0) fL MCH (25.0-35.0) pg RDW (11.5-15.5) % Plt Count (150-450) k/uL Potassium (3.5-5.1) mmol/L Chloride (98-107) mmol/L Carbon Dioxide (22-30) mmol/L Creatinine (0.52-1.04) mg/dL Glucose (74-99) mg/dL POC Glucose (mg/dL) 123 H 127 H (75-99) mg/dL Plasma Lactic Acid Hugo (0.7-2.0) mmol/L Calcium (8.4-10.2) mg/dL Total Protein (6.3-8.2) g/dL Albumin (3.5-5.0) g/dL Crossmatch See Detail 04/23/16 04/24/16 04/24/16 Range/Units 21:06 06:20 06:20 WBC 0.7 L* (3.8-10.6) k/uL RBC 1.77 L (3.80-5.40) m/uL Hgb 6.5 L* (11.4-16.0) gm/dL Hct 18.8 L* (34.0-46.0) % MCV 106.4 H D (80.0-100.0) fL MCH 36.6 H (25.0-35.0) pg RDW 20.5 H (11.5-15.5) % Plt Count 18 L* (150-450) k/uL Potassium 2.9 L* (3.5-5.1) mmol/L Chloride 109 H (98-107) mmol/L Carbon Dioxide (22-30) mmol/L Creatinine 1.21 H (0.52-1.04) mg/dL Glucose 108 H (74-99) mg/dL POC Glucose (mg/dL) 145 H (75-99) mg/dL Plasma Lactic Acid Hugo (0.7-2.0) mmol/L Calcium 7.9 L (8.4-10.2) mg/dL Total Protein 5.7 L (6.3-8.2) g/dL Albumin (3.5-5.0) g/dL Crossmatch 04/24/16 Range/Units 06:20 WBC (3.8-10.6) k/uL RBC (3.80-5.40) m/uL Hgb (11.4-16.0) gm/dL Hct (34.0-46.0) % MCV (80.0-100.0) fL MCH (25.0-35.0) pg RDW (11.5-15.5) % Plt Count (150-450) k/uL Potassium (3.5-5.1) mmol/L Chloride (98-107) mmol/L Carbon Dioxide (22-30) mmol/L Creatinine (0.52-1.04) mg/dL Glucose (74-99) mg/dL POC Glucose (mg/dL) (75-99) mg/dL Plasma Lactic Acid Hugo 0.6 L (0.7-2.0) mmol/L Calcium (8.4-10.2) mg/dL Total Protein (6.3-8.2) g/dL Albumin (3.5-5.0) g/dL Crossmatch Chest x-ray: report reviewed Assessment and Plan (1) Pancytopenia due to antineoplastic chemotherapy Narrative/Plan: Pancytopenia multifactorial including chemo and myeloma. Plan is to transfuse PRBCs to safe range, GCSF ordered, no plt for now. Pt will f/u with Dr. Wiseman for further plan of care. Pt agrees with plan. Status: Chronic (2) Multiple myeloma Narrative/Plan: Under the care of Dr. Wiseman, chemo currently on hold due to hematological toxicities. She recently received her zometa, no acute interventions for myeloma. Status: Chronic
[2016-04-24 17:43] LABS: Glucose,Whole Blood 139 mg/dL (75-99)
[2016-04-24 20:39] LABS: Glucose,Whole Blood 162 mg/dL (75-99)
[2016-04-25 06:18] LABS: Anisocytosis Moderate; Basophils % (A) 0 %; CHCM 34.4; Eosinophils % (A) 1 %; HCT 21.1 % (34.0-46.0); HDW 3.59; HGB 7.5 gm/dL (11.4-16.0); Luc # (Auto) 0.04; Luc % (Auto) 2; Lymphocytes # (A) 0.1 k/uL (1.0-4.8); Lymphocytes % (A) 8 %; MCH 36.2 pg (25.0-35.0); MCHC 35.2 g/dL (31.0-37.0); MCV 102.7 fL (80.0-100.0); Macrocytosis Marked; Mean Platelet Volume 9.2; Monocytes # (A) 0.1 k/uL (0-1.0); Monocytes % (A) 7 %; Neutrophils # (A) 1.3 k/uL (1.3-7.7); Neutrophils % (A) 82 %; Poikilocytosis Slight; RBC 2.06 m/uL (3.80-5.40); RDW 21.3 % (11.5-15.5); WBC (Perox) 1.64
[2016-04-25 06:21] LABS: WBC 1.6 k/uL (3.8-10.6)
[2016-04-25] MEDS: LEVOTHYROXINE 50 MCG TAB PO SCH (06:25)
[2016-04-25 06:43] LABS: Calcium 8.3 mg/dL (8.4-10.2); Potassium 3.4 mmol/L (3.5-5.1); Total Bilirubin 0.6 mg/dL (0.2-1.3); Total Protein 5.5 g/dL (6.3-8.2)
[2016-04-25 07:07] LABS: Glucose,Whole Blood 106 mg/dL (75-99)
[2016-04-25] MEDS: INSULIN LISPRO (humaLOG) 300 UNIT/3 ML VIAL SQ SCH ×4 (07:58→22:21)
[2016-04-25] MEDS: FAMOTIDINE 20 MG TAB PO SCH (08:00)
[2016-04-25] MEDS: ACYCLOVIR 200 MG CAP PO SCH ×2 (08:00→22:21)
[2016-04-25] MEDS: PRAVASTATIN SODIUM 80 MG TAB PO SCH (08:00)
[2016-04-25] MEDS: FERROUS SULFATE 325 MG TAB PO SCH (08:00)
[2016-04-25] MEDS: POTASSIUM CHLORIDE 20 MEQ in WATER FOR INJECTION 1 100ML.BAG IVPB SCH ×3 (08:00→12:32)
[2016-04-25] MEDS: GABAPENTIN 400 MG CAP PO SCH ×3 (08:00→22:21)
[2016-04-25 11:40] LABS: Glucose,Whole Blood 113 mg/dL (75-99)
--- NOTE | 2016-04-25 12:25 | P.PN ---
Subjective Patient is doing fairly well today. No evidence overnight. No documented fevers. Objective - Vital Signs Vital signs: Vital Signs Temp 98.2 F 04/25/16 07:00 Pulse 79 04/25/16 07:00 Resp 18 04/25/16 07:00 BP 130/60 04/25/16 07:00 Pulse Ox 97 04/25/16 07:00 Intake & Output 04/24/16 04/25/16 04/25/16 18:59 06:59 18:59 Intake Total 1110 650 Balance 1110 650 Weight 80 kg Intake: IV 750 450 Sodium Chloride 0.9% 1, 750 450 000 ml @ 50 mls/hr IV . Q20H [facility] Rx#:[id number] Intake, IV Titration 50 Amount cefTRIAXone 1,000 mg In 50 Sodium Chloride 0.9% 50 ml @ 100 mls/hr IVPB HS [facility] Rx#:[id number] Oral 200 Blood Product 310 Rc Irr As1 Unit 310 [id number] Other: Voiding Method Toilet Toilet # Voids 4 - Exam General: The patient is awake and alert, in no distress Eye: there is normal conjunctiva bilaterally. Neck: The neck is supple, there is no JVD. Cardiovascular: Normal S1-S2, no S3-S4, no murmurs. Respiratory: Lungs clear to auscultation bilaterally Gastrointestinal: Abdomen is soft, nontender Musculoskeletal: There is no pedal edema. Neurological:. Speech is normal. Skin: Skin is warm and dry - Labs CBC & Chem 7: 04/25/16 06:10 04/25/16 06:10 Labs: Abnormal Lab Results - Last 24 Hours (Table) 04/23/16 04/24/16 04/24/16 Range/Units 17:08 17:41 20:33 WBC (3.8-10.6) k/uL RBC (3.80-5.40) m/uL Hgb (11.4-16.0) gm/dL Hct (34.0-46.0) % MCV (80.0-100.0) fL MCH (25.0-35.0) pg RDW (11.5-15.5) % Plt Count (150-450) k/uL Lymphocytes # (1.0-4.8) k/uL Sodium (137-145) mmol/L Potassium (3.5-5.1) mmol/L Chloride (98-107) mmol/L Creatinine (0.52-1.04) mg/dL Glucose (74-99) mg/dL POC Glucose (mg/dL) 139 H 162 H (75-99) mg/dL Calcium (8.4-10.2) mg/dL Total Protein (6.3-8.2) g/dL Albumin (3.5-5.0) g/dL Crossmatch See Detail 04/25/16 04/25/16 04/25/16 Range/Units 06:10 06:10 07:02 WBC 1.6 L* (3.8-10.6) k/uL RBC 2.06 L (3.80-5.40) m/uL Hgb 7.5 L (11.4-16.0) gm/dL Hct 21.1 L (34.0-46.0) % MCV 102.7 H (80.0-100.0) fL MCH 36.2 H (25.0-35.0) pg RDW 21.3 H (11.5-15.5) % Plt Count 17 L* (150-450) k/uL Lymphocytes # 0.1 L (1.0-4.8) k/uL Sodium 147 H (137-145) mmol/L Potassium 3.4 L (3.5-5.1) mmol/L Chloride 115 H (98-107) mmol/L Creatinine 1.22 H (0.52-1.04) mg/dL Glucose 105 H (74-99) mg/dL POC Glucose (mg/dL) 106 H (75-99) mg/dL Calcium 8.3 L (8.4-10.2) mg/dL Total Protein 5.5 L (6.3-8.2) g/dL Albumin 3.3 L (3.5-5.0) g/dL Crossmatch 04/25/16 Range/Units 11:38 WBC (3.8-10.6) k/uL RBC (3.80-5.40) m/uL Hgb (11.4-16.0) gm/dL Hct (34.0-46.0) % MCV (80.0-100.0) fL MCH (25.0-35.0) pg RDW (11.5-15.5) % Plt Count (150-450) k/uL Lymphocytes # (1.0-4.8) k/uL Sodium (137-145) mmol/L Potassium (3.5-5.1) mmol/L Chloride (98-107) mmol/L Creatinine (0.52-1.04) mg/dL Glucose (74-99) mg/dL POC Glucose (mg/dL) 113 H (75-99) mg/dL Calcium (8.4-10.2) mg/dL Total Protein (6.3-8.2) g/dL Albumin (3.5-5.0) g/dL Crossmatch Assessment and Plan Plan: 1. UTI with sepsis: Urine culture negative. Patient is currently on IV Rocephin. We will switch to oral antibiotic when ready for discharge 2. History of multiple myeloma followed by Todd Munoz. Last chemo treatment was March 28. Patient is no longer receiving chemotherapy at this time. Seen and evaluated by oncology, appreciate recommendations. 3. Pancytopenia and chronic anemia: Status post 1 unit PRBC transfusion during this admission 4. Diabetes mellitus type 2: Hold metformin. Place patient on sliding scale coverage 5. Acute kidney injury 6. Hypothyroidism on Synthroid 7. Hyperlipidemia on pravastatin GI prophylaxis Pepcid and DVT prophylaxis SCD Plan for today: Awaiting hematology clearance for discharge
[2016-04-25] MEDS: FILGRASTIM-SNDZ 480 MCG/0.8 ML SYRINGE SQ SCH (17:07)
[2016-04-25 17:26] LABS: Glucose,Whole Blood 128 mg/dL (75-99)
[2016-04-25 20:02] LABS: Glucose,Whole Blood 219 mg/dL (75-99)
[2016-04-26] MEDS: LEVOTHYROXINE 50 MCG TAB PO SCH (06:08)
[2016-04-26 06:21] LABS: Anisocytosis Moderate; CH 35.2; CHCM 34.3; HCT 22.6 % (34.0-46.0); HDW 3.63; HGB 7.4 gm/dL (11.4-16.0); Immature Gran Flag Marked; MCH 34.1 pg (25.0-35.0); MCHC 32.8 g/dL (31.0-37.0); MCV 103.7 fL (80.0-100.0); Macrocytosis Marked; Mean Platelet Volume 10.6; Poikilocytosis Slight; RBC 2.18 m/uL (3.80-5.40); RDW 21.4 % (11.5-15.5); WBC 2.3 k/uL (3.8-10.6); WBC (Perox) 2.33
[2016-04-26 06:43] LABS: Calcium 8.6 mg/dL (8.4-10.2); Potassium 3.7 mmol/L (3.5-5.1); Total Bilirubin 0.7 mg/dL (0.2-1.3); Total Protein 5.6 g/dL (6.3-8.2)
[2016-04-26 07:06] LABS: Glucose,Whole Blood 133 mg/dL (75-99)
[2016-04-26 07:14] LABS: Add Differential Manual Differential
[2016-04-26 07:19] LABS: Manual Review Performed; Nucleated Red Blood Cells 0 /100 WBC (0-0); Polychromasia Present; Total Cells Counted 100
[2016-04-26 07:38] VITALS: BP 126/60; PULSE 80; RESP 18; TEMP 98
[2016-04-26] MEDS: INSULIN LISPRO (humaLOG) 300 UNIT/3 ML VIAL SQ SCH (07:53)
[2016-04-26] MEDS: GABAPENTIN 400 MG CAP PO SCH (08:32)
[2016-04-26] MEDS: FAMOTIDINE 20 MG TAB PO SCH (08:33)
[2016-04-26] MEDS: ACYCLOVIR 200 MG CAP PO SCH (08:33)
[2016-04-26] MEDS: PRAVASTATIN SODIUM 80 MG TAB PO SCH (08:33)
[2016-04-26] MEDS: FERROUS SULFATE 325 MG TAB PO SCH (08:33)
--- NOTE | 2016-04-26 10:52 | P.DS ---
Providers Date of admission: 04/22/16 21:33 Expected date of discharge: 04/26/16 Attending physician: Yuli Reynolds Consults: 04/23/16 09:42 Consult Physician Routine Consulting Provider: Dustin Pena Consult Reason/Comments: multiple myeloma Do you want consulting provider notified?: Yes Primary care physician: Jill Nobles Hospital Course: Discharge diagnosis 1. UTI with sepsis: Urine culture negative. Patient received 4 days of Rocephin. No further antibiotic treatment needed 2. History of multiple myeloma followed by Todd Munoz. Last chemo treatment was March 28. Patient is no longer receiving chemotherapy at this time. Seen and evaluated by oncology, appreciate recommendations. 3. Pancytopenia and chronic anemia: Status post 1 unit PRBC transfusion during this admission 4. Diabetes mellitus type 2: 5. Acute kidney injury likely related to her dehydration and sepsis. Showing improvement. Creatinine at discharge is 1.19 6. Hypothyroidism on Synthroid 7. Hyperlipidemia on pravastatin 8. Hypokalemia improved with supplement Hospital course This is a 65-year-old female with a known history of multiple myeloma, coronary artery disease, congestive heart failure, diabetes mellitus type 2 and hypothyroidism. She is a known patient of Dr. Laura. Patient seen and examined in the emergency room. She presents to the emergency room with complaints of generalized weakness and not feeling well. Patient was found to have a UTI and started on IV Rocephin. She was also found to be septic and elevated lactic acid level. With elevated temp and heart rate. Patient symptoms improved with IV fluids and antibiotics. She was seen by oncology regards to her multiple myeloma and evidence of a pancytopenia and anemia. Patient did require 1 unit of blood. Hemoglobin at discharge is 7.4, white count 2.3 and platelets of 16. Evaluated by oncology this morning and had cleared her for discharge. Patient has completed treatment for her UTI. Urine culture was negative. Patient remains asymptomatic for any urinary symptoms. Patient is feeling well and is eager for discharge home. Patient's neck was stable for discharge. Please refer to chart for any further details. Also note that during this admission her Lasix and metformin were held due to her acute kidney injury. Creatinine has come down to 1.19. We'll resume her Lasix and metformin. Recommend following kidney functions closely check BMP in 1 week. Patient will have a potassium supplement added to her regimen will she's on Lasix 40 daily. Patient Condition at Discharge: Stable Plan - Discharge Summary New Discharge Prescriptions: Potassium Chloride ER [K-Dur 20] 20 meq PO DAILY #30 tab Discharge Medication List Acyclovir 400 mg PO BID 04/22/16 [History] Ferrous Sulfate [Iron (65 MG Elemental)] 325 mg PO DAILY 04/22/16 [History] Furosemide [Lasix] 40 mg PO DAILY 04/22/16 [History] Gabapentin [Neurontin] 400 mg PO TID 04/22/16 [History] Levothyroxine Sodium [Synthroid] 50 mcg PO DAILY 04/22/16 [History] Morphine Sulfate ER [Ms Contin] 15 mg PO Q12HR PRN 04/22/16 [History] Pravastatin Sodium [Pravachol] 80 mg PO DAILY 04/22/16 [History] metFORMIN HCL 1,000 mg PO BID 04/22/16 [History] Potassium Chloride ER [K-Dur 20] 20 meq PO DAILY #30 tab 04/26/16 [Rx] Follow up Appointment(s)/Referral(s): Jill Nobles MD [Primary Care Provider] - 1 Week Activity/Diet/Wound Care/Special Instructions: home care- [facility] - Diet: diabetic, cardiac Activity: as tolerated Follow up with her oncologist as scheduled Check CBC, BMP in 1 week Discharge Disposition: HOME WITH HOME HEALTH SERVICES
[2016-04-26 11:23] LABS: Glucose,Whole Blood 138 mg/dL (75-99)
[2016-04-26] MEDS: FILGRASTIM-SNDZ 480 MCG/0.8 ML SYRINGE SQ SCH (12:37)
== END 2016-04-26 12:59 | disposition home health service (06) | DRG 871 ==
LOC: EC 18:34 → 6SEL 21:33 → 5MS5E 04-23 17:10 → 5ONC 04-23 20:57
PROVIDERS: ADMIT Internal Medicine; ATTEND Internal Medicine
PROC: 30243N1 Transfusion of Nonautologous Red Blood Cells into Central Vein, Percutaneous Approach (ICD-10-PCS; principal; 2016-04-24)
DX: A41.9 Sepsis, unspecified organism (principal); D61.810 Antineoplastic chemotherapy induced pancytopenia; N17.9 Acute kidney failure, unspecified; D61.818 Other pancytopenia; C90.00 Multiple myeloma not having achieved remission; N39.0 Urinary tract infection, site not specified; E86.0 Dehydration; E87.6 Hypokalemia; I50.9 Heart failure, unspecified; T50.1X5A Adverse effect of loop [high-ceiling] diuretics, initial encounter; T38.3X5A Adverse effect of insulin and oral hypoglycemic [antidiabetic] drugs, initial encounter; T45.1X5A Adverse effect of antineoplastic and immunosuppressive drugs, initial encounter; E11.9 Type 2 diabetes mellitus without complications; I25.10 Atherosclerotic heart disease of native coronary artery without angina pectoris; E78.5 Hyperlipidemia, unspecified; R53.1 Weakness; G89.29 Other chronic pain; E03.9 Hypothyroidism, unspecified; R19.7 Diarrhea, unspecified; R11.2 Nausea with vomiting, unspecified; R00.0 Tachycardia, unspecified; M54.9 Dorsalgia, unspecified; Z82.49 Family history of ischemic heart disease and other diseases of the circulatory system; Z81.8 Family history of other mental and behavioral disorders; Z88.5 Allergy status to narcotic agent; Z87.311 Personal history of (healed) other pathological fracture; Z92.3 Personal history of irradiation; Z95.5 Presence of coronary angioplasty implant and graft; Z92.21 Personal history of antineoplastic chemotherapy; Z98.42 Cataract extraction status, left eye; Z98.41 Cataract extraction status, right eye; Z87.891 Personal history of nicotine dependence; Z80.3 Family history of malignant neoplasm of breast; Z80.49 Family history of malignant neoplasm of other genital organs; Z83.49 Family history of other endocrine, nutritional and metabolic diseases; Z79.84 Long term (current) use of oral hypoglycemic drugs; Z79.891 Long term (current) use of opiate analgesic; Z79.899 Other long term (current) drug therapy
CPT/HCPCS: 36415; 71020; 80053; 81001; 82533; 82550; 82553; 83036; 83605; 84132; 84484; 85025; 85610; 85730; 86850; 86870; 86880; 86885; 86900; 86901; 86902; 86920; 86970; 87040; 87086; 87502; 93005; 96361; 96365; 96366; 96367; 99285